=== PATIENT | female | born 1980 | race Caucasian/White ===

== ENCOUNTER 2020-09-14 15:31 | Emergency (ER) | payer OTHER, SELFPAY ==
[2020-09-14 15:43] VITALS: BP 110/77; PULSE 84; RESP 16; TEMP 37.3; O2SAT 99
--- NOTE | 2020-09-14 15:44 | ED.GENADULT ---
HPI - General Adult General Chief complaint: Dizziness Stated complaint: Dizziness Time Seen by Provider: 09/14/20 15:44 Source: patient Mode of arrival: ambulatory Limitations: no limitations History of Present Illness HPI narrative: Patient states that she was at work today at 0700 when she was experiencing feelings of dizziness. 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 Patient states that she has history of seizures and takes Keppra daily but has not had any recent levels. Patient states that she went home and she made sure that she has eaten meals at routine times and was concerned maybe her blood sugar was low. Patient states that she has no ear pain, sinus congestion, sore throat, cough or any feeling of congestion. Patient has BP lying 133/78. sitting 126/76, and standing 107/74 with no symptoms at present admits to not drinking much fluids today.. Patient states that she has kind of been stressed over her daughter being and going through divorce herself, patient admits to being released from skilled nursing in May. complaint: dizziness Onset (ago): hour(s) (9) Radiation: other (no pain) Severity: mild Exacerbating factors: none Associated symptoms: denies other symptoms Treatments prior to arrival: none Related Data Home Medications Medication Instructions Recorded Confirmed Keppra 09/14/20 Allergies Allergy/AdvReac Type Severity Reaction Status Date / Time Penicillins Allergy Unknown SWELLING Verified 03/01/17 20:02 ALL OVER Review of Systems Review of Systems: Narrative: CONSTITUTIONAL: Denies fever, chills, or sweats. EYES: Denies visual changes, redness, or discharge. ENT: Denies rhinorrhea, congestion, sore throat, or otalgia. CARDIOVASCULAR: Denies chest pain, palpitations, or edema. RESPIRATORY: Denies cough or dyspnea. GASTROINTESTINAL: Denies abdominal pain, nausea, vomiting, or diarrhea. GENITOURINARY: Denies dysuria or hematuria. SKIN: Denies rash or itching. MUSCULOSKELETAL: Denies back pain, joint pain, or myalgia. NEUROLOGIC: Denies headache, numbness, or weakness, episode of dizziness this morning at work, no complaints at this time PSYCHIATRIC: Positive history of anxiety or depression. All systems reviewed & are unremarkable except as noted in HPI and below [facility] Past Medical History Medical History (Updated 09/14/20 @ 16:49 by April Guerrero NP) Asthma Bronchitis Seizures UTI (urinary tract infection) Surgical History Surgical History (Updated 09/14/20 @ 16:54 by April Guerrero NP) H/O LEEP History of tubal ligation Hx of cholecystectomy Previous section Social History Social History (Updated 09/14/20 @ 16:14 by April Guerrero NP) Smoking status: Current every day smoker Tobacco type: cigarettes Alcohol intake: former Substance use: former Substance use type: marijuana, crack/cocaine and amphetamines Living arrangements: with family Gender identity (if verbalized by the patient): Female Comments At time of signature, agree with nursing past medical, surgical, social and family history. There is no relevant family history pertinent to the presenting complaint Exam Narrative: Exam Narrative: GENERAL: Well-appearing, well-nourished, and in no acute distress. HEAD: Normocephalic, atraumatic. EYES: PERRLA and EOMI. ENT: Nares clear, no rhinorrhea or epistaxis. Mucous membranes moist. TM's normal with good light reflex. throat pink with no redness or drainage, no tonsil enlargement, NECK: Supple. no lymphadenopathy CHEST: Clear to auscultation. No respiratory distress.SAO2 99% on room air HEART: Regular rate and rhythm. No murmur heard. Normal peripheral pulses. ABDOMEN: Soft, nontender, nondistended, normal active bowel sounds. EXTREMITIES: Normal range of motion. No edema. SKIN: Warm, dry, no rash. NEURO: No focal deficits. Alert
[2020-09-14 15:54] LABS: Glucose Point of Care 99 (65-105)
[2020-09-14 16:15] VITALS: BP 126/76; BP 133/78; PULSE 91; PULSE 94
[2020-09-14 16:16] VITALS: BP 107/74; PULSE 111
== END 2020-09-14 16:26 | disposition home or self-care (01) ==
PROVIDERS: Emergency Provider Registered Nurse
DX: I95.1 Orthostatic hypotension (principal); R42 Dizziness and giddiness; F17.210 Nicotine dependence, cigarettes, uncomplicated; G40.909 Epilepsy, unspecified, not intractable, without status epilepticus; J45.909 Unspecified asthma, uncomplicated
CPT/HCPCS: 82948; 99213; G0463

== ENCOUNTER 2021-03-20 13:40 | Emergency (ER) | payer OTHER, SELFPAY ==
[2021-03-20 14:09] VITALS: BP 120/71; PULSE 85; RESP 16; TEMP 36.2; O2SAT 99
--- NOTE | 2021-03-20 15:41 | PC.NURSE ---
Patient leaving ED at this time, patient states that she can come back tomorrow when there are less patient's.
== END 2021-03-20 15:41 | disposition left against medical advice (07) ==
DX: Z53.21 Procedure and treatment not carried out due to patient leaving prior to being seen by health care provider (principal)
CPT/HCPCS: 99199

== ENCOUNTER 2021-03-20 18:39 | Emergency (ER) | payer OTHER, SELFPAY ==
--- NOTE | ~2021-03-20 | CT_ITS ---
EXAMINATION: CT abd pelvis lumbar wo con DATE: 03/20/2021 21:13 INDICATION: Right flank pain, right lower quadrant pain and sciatica TECHNIQUE: Computed tomography (CT) of the abdomen, pelvis and lumbar spine was performed without int ravenous contrast. Automated exposure control and iterative reconstruction technique were employed. T he dose-length product was 779.77 mGy-cm. COMPARISON: Lumbar spine radiographs dated 03/01/2017 FINDINGS: Abdomen and pelvis: Lung bases are clear. Heart size is normal. No pericardial or pleural effusion. Cholecystectomy clips at the gallbladder fossa. Splenic calcific lesions consistent with old granulomatous disease. Liver, pancreas and bilateral adrenal glands are normal. Kidneys and ureters are normal with no urolithiasi s, hydroureteronephrosis or perinephric/ureteral stranding. There are few scattered colonic diverticu la without adjacent inflammatory change to suggest diverticulitis. Small bowel and appendix are tisha l. Bladder, uterus and bilateral adnexa are unremarkable. Small amount of likely physiologic free flu id in the cul-de-sac. No abscess or free intraperitoneal gas. No pathologically enlarged abdominal or pelvic lymphadenopathy. Lumbar spine: Alignment is normal. Vertebral body and disc heights are normal. Mild disc bulge at L4-L5 resulting i n minimal central canal and mild bilateral neural foraminal stenosis. Mild to moderate bilateral face t osteoarthritis at L3-L4 and L5-S1. Mild facet osteoarthritis the remaining lumbar and lower thoraci c levels. There is indeterminate increased density at the right L3-L4 neural foramen. IMPRESSION: 1. Small amount of likely physiologic free fluid in the cul-de-sac. No acute intra-abdominal/pelvic p rocess. 2. Minimal lumbar spondylosis but with nonspecific increased soft tissue density at the right L3-L4 n eural foramen, unclear whether this results from an enlarged nerve root, a disc protrusion/extrusion or other soft tissue process. Could consider lumbar spine MR for further evaluation. Reviewed, dictated and finalized at location A. IMPRESSION: 1. Small amount of likely physiologic free fluid in the cul-de-sac. No acute in tra-abdominal/pelvic process. 2. Minimal lumbar spondylosis but with nonspecific increased soft tissue densit y at the right L3-L4 neural foramen, unclear whether this results from an enlar ged nerve root, a disc protrusion/extrusion or other soft tissue process. Could consider lumbar spine MR for further evaluation.
[2021-03-20 19:05] VITALS: BP 120/64; PULSE 74; RESP 18; TEMP 37.1; O2SAT 100
[2021-03-20 19:10] VITALS: BP 120/64; PULSE 75; RESP 20; TEMP 37.1; O2SAT 100
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
--- NOTE | 2021-03-20 19:58 | PC.NURSE ---
Pt unable to void, refusing straight catheter at this time. Drink offered, urine cup at bedside.
[2021-03-20] MEDS: diazePAM (*CRX) 5 MG TABLET PO (20:10)
[2021-03-20] MEDS: KETOROLAC 30 MG/ML VIAL (*BKC) IV PUSH (20:11)
[2021-03-20] MEDS: methylPREDNISolone SOD SUCC 125 MG VIAL IV PUSH (20:11)
[2021-03-20 20:16] VITALS: BP 119/83; PULSE 65; RESP 18; O2SAT 100
[2021-03-20 20:24] LABS: Basophils Percent Auto 0.5 % (0.2-1.2); Eosinophils Absolute Auto 0.2 K/mm3 (0-0.3); Eosinophils Percent Auto 2.6 % (0-4.4); Hematocrit 35.6 % (37.0-47.0); Hemoglobin 11.8 g/dL (12.0-15.0); Immature Granulocyte Absolute 0.01 K/mm3 (0.00-0.031); Immature Granulocyte Percent A 0.2 % (0-0.5); Lymphocytes Absolute Auto 1.61 K/mm3 (0.9-3.2); Lymphocytes Percent Auto 27.9 % (18.3-44.2); Mean Corpuscular HGB Conc 33.1 g/dl (32-36); Mean Corpuscular Hemoglobin 28.9 pg (26-34); Mean Platelet Volume 11.5 fl (7.4-10.4); Monocytes Absolute Auto 0.3 K/mm3 (0.1-0.6); Monocytes Percent Auto 5.2 % (2.6-8.5); Neutrophils Absolute Auto 3.7 K/mm3 (1.3-6.7); Neutrophils Percent Auto 63.6 % (45.5-73.1); Platelet Count Result 182 k/mm3 (150-375); Red Blood Count 4.09 M/mm3 (4.2-5.4); Red Cell Distribution Width 13.2 % (11.5-14.5); White Blood Count 5.8 K/mm3 (4.5-10.0)
[2021-03-20 20:29] LABS: Add Urine Microscopic? YES; Appearance Urine Cloudy (Clear); Bacteria Urine Trace /hpf; Bilirubin Urine Negative (Negative); Blood Urine Negative (Negative); Calcium Oxalate Crystals Urine Many /hpf; Color Urine Yellow (Yellow); Glucose Urine UA Negative (Negative); Ketones Urine Negative (Negative); Leukocyte Esterase Ur Trace LEU/UL (Negative); Mucus Urine Few /lpf; Nitrate Urine Negative (Negative); Protein Urine 1+ mg/dL (Negative); Specific Grav Ur 1.028 (1.001-1.035); Squamous Epithelial Cell Urine Many /hpf (Few); WBC Urine 0-3 /hpf
[2021-03-20 20:37] LABS: Alanine Aminotransferase 16 U/L (4-35); Albumin Level 3.4 g/dL (3.5-5.1); Alkaline Phosphatase 57 U/L (38-126); Anion Gap 6 mmol/L (8-16); Aspartate Amino Transferase 20 U/L (14-36); Bilirubin,Total 0.2 mg/dL (0.2-1.3); Blood Urea Nitrogen 10 mg/dL (7-17); Calcium 8.5 mg/dL (8.4-10.2); Carbon Dioxide 24 mmol/L (22-30); Chloride 110 mmol/L (98-107); Estimated CRCL calculation 112 ml/min; Estimated Glomerular Filt Rate > 60; Glucose 93 mg/dL (65-105); Potassium 3.1 mmol/L (3.4-5.0); Sodium 140 mmol/L (137-145)
[2021-03-20] MEDS: POTASSIUM CHLORIDE 20 MEQ TABLET 40 MEQ PO (20:45)
[2021-03-20 21:59] VITALS: BP 132/82; PULSE 75; RESP 16; O2SAT 100
[2021-03-20 23:20] VITALS: BP 121/79; PULSE 72; RESP 18; O2SAT 100
== END 2021-03-20 23:30 | disposition home or self-care (01) ==
PROVIDERS: Emergency Provider General Practice
DX: M47.26 Other spondylosis with radiculopathy, lumbar region (principal); J45.909 Unspecified asthma, uncomplicated; Z87.440 Personal history of urinary (tract) infections; F17.210 Nicotine dependence, cigarettes, uncomplicated
CPT/HCPCS: 36415; 72131; 74176; 80053; 81001; 81025; 85025; 96374; 96375; 99284; A9270; J1885; J2930

== ENCOUNTER 2021-04-23 15:45 | Outpatient (RCR) | payer OTHER, SELFPAY ==
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
--- NOTE | 2021-04-16 16:14 | PCPTNOTE ---
pt did not show for today's appt;
--- NOTE | 2021-04-26 15:30 | PCPTNOTE ---
pt did not show for today's appointment; left message with reminder for next appt;
--- NOTE | 2021-05-01 16:14 | PCPTNOTE ---
Addendum entered by Destiny Parker, PT 05/01/21 16:19: when talking with pt on phone, attempted to reschedule the reeval appt for her; she did not know her work schedule for next week and she will call next week for appt time. Original Note: pt did not show for today's appt, called and she needs to reschedule reeval on 05-03-21;
--- NOTE | 2021-05-17 09:45 | PCPTNOTE ---
pt did not show for today's reevaluation; ; PT discharged.
--- NOTE | 2021-05-17 09:46 | PCPTNOTE ---
PHYSICAL THERAPY DISCHARGE 05-17-21 Attending Provider: MARCY Varner Patient:Roman Spears Date of :1980 Ms. Spears has not returned for any further treatments since 04/23/2021, therefore she will be discharged at this time. Roman has received 3 PT sessions for the diagnosis of lumbar radiculopathy, from April 09 to May 17. She did not show for 4 scheduled appointments, including the reevaluation, which was scheduled for today. The goals were not addressed. Thank you for referring this patient to [facility]. Please review, sign, date and return this discharge summary CHRISTOPH. I have been updated about the patient's current status and I agree with discharge from the above service at this time. Referring Physician Date
== END 2021-05-22 15:30 | disposition home or self-care (01) ==
LOC: ANHPT 15:45
PROVIDERS: PCP Physician Assistant; Visit Provider Physician Assistant
DX: M54.16 Radiculopathy, lumbar region (principal)
CPT/HCPCS: 97014; 97110; 97140; 97161; G0283

== ENCOUNTER 2022-12-07 16:25 | Emergency (ER) | payer OTHER, SELFPAY ==
--- NOTE | ~2022-12-07 | CT_ITS ---
EXAMINATION: CT facial & cervical spine wo DATE: 12/07/2022 17:05 INDICATION: jaw pain, neck pain, injury TECHNIQUE: Computed tomography (CT) of the maxillofacial region and cervical spine was performed with out intravenous contrast. Automated exposure control and iterative reconstruction technique were empl oyed. The dose-length product was 431.71 mGy-cm. COMPARISON: CT brain, same date. CT cervical spine 03/01/2017 FINDINGS: CERVICAL: Vertebral Body Alignment: Intact. Cervical spine straightening which can occur with positioning or mu scle spasm. Craniocervical and atlantoaxial alignment: Mild degenerative change. Alignment intact. Osseous structures/fracture: No evidence of a lytic or blastic process in the visualized spine. No e vidence of acute fracture. Cervical soft tissues: The paraspinal soft tissues planes are maintained. Degenerative changes: Degenerative changes, without severe neural foraminal or central canal narrowin g. FACE: Soft Tissues: No significant superficial soft tissue swelling. Facial bones: No acute fracture. No lytic or blastic process. Eyes: The globes are intact. The soft tissue planes of the orbits are maintained. Paranasal Sinuses: Mucosal thickening and aerated secretions in the ethmoid air cells and right maxi llary sinus. Foreign Bodies: No radiopaque foreign bodies. Other Findings: None. IMPRESSION: No acute fracture or traumatic malalignment in the cervical spine. No acute facial bone fracture. Eth moid and right maxillary sinus findings may represent acute sinusitis or mucosal hemorrhage in the se tting of trauma. Reviewed, dictated and finalized at location K. N TECH IMPRESSION: No acute fracture or traumatic malalignment in the cervical spine. No acute fac ial bone fracture. Ethmoid and right maxillary sinus findings may represent acu te sinusitis or mucosal hemorrhage in the setting of trauma.
--- NOTE | ~2022-12-07 | CT_ITS ---
EXAMINATION: CT brain wo con DATE: 12/07/2022 17:05 INDICATION: head injury . TECHNIQUE: Computed tomography (CT) of the head was performed without intravenous contrast. The mA wa s adjusted according to patient size. Iterative reconstruction technique was employed. The dose-lengt h product was 605.33 mGy-cm. COMPARISON: 03/01/2017. FINDINGS: No acute intracranial hemorrhage or extra-axial fluid collection. No hydrocephalus, mass, or herniation. No acute ischemic infarct. Unremarkable dural venous sinus attenuation. No acute osseous abnormality. Subcutaneous cyst or nodule in the posterior scalp near the vertex. Mucosal thickening and aerated secretions in the ethmoid air cells and right maxillary sinus aerated spaces are clear. IMPRESSION: No acute intracranial process. Ethmoid and right maxillary acute sinusitis versus mucosal hemorrhage. Reviewed, dictated and finalized at location K. EGE RECRUITER IMPRESSION: No acute intracranial process. Ethmoid and right maxillary acute sinusitis vers us mucosal hemorrhage.
[2022-12-07 16:25] VITALS: BP 122/95; PULSE 87; RESP 18; TEMP 36.7; O2SAT 99
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
[2022-12-07] MEDS: ACETAMINOPHEN 500 MG TABLET 1000 MG PO (17:15)
== END 2022-12-07 17:47 | disposition home or self-care (01) ==
PROVIDERS: Emergency Provider Physician Assistant; PCP Physician Assistant
DX: S06.0X1A Concussion with loss of consciousness of 30 minutes or less, initial encounter (principal); J45.909 Unspecified asthma, uncomplicated; Z87.440 Personal history of urinary (tract) infections; F17.210 Nicotine dependence, cigarettes, uncomplicated; Y04.2XXA Assault by strike against or bumped into by another person, initial encounter
CPT/HCPCS: 70450; 70486; 72125; 99284; A9270

== ENCOUNTER 2023-02-19 09:00 | Outpatient (RCR) | payer OTHER, SELFPAY ==
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
--- NOTE | 2023-01-22 11:31 | PCPTNOTE ---
Called Pt after appointment time, Pt apologized for not calling to cancel due to her dealing with a severe UTI. Informed Pt we will cancel this appointment due to the illness. Reminded her of her upcoming appointment on 01/29/23 @09:00.
--- NOTE | 2023-02-19 09:32 | PTOPDC ---
Assessment and note entered by Jaret Lee, PT Evaluation Information Assessment Status Evaluation Diagnosis low back pain Onset Chronic Subjective Information Patient report no change in S/S of her back pain. 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 Patient reports she has multiple styes in her L eye she is trying to get taken care of. Reported Pain Level Pain Score 7: Self Report Assessment PT Clinical Summary Roman is a 42 year old female coming into the clinic with a diagnosis of chronic low back pain. Patient was evaluated on 01/07/23 and attended 5 sessions of physical therapy with no goals met and objective measurements worse than initial evaluations. Patient reports going to see her back doctor tomorrow. At this time I believe that conservative treatments are not working and encourage her to see what the back doctor will suggest. Discharged from skilled physical therapy . Plan of Care PT Services Indicated No
== END 2023-02-19 13:42 | disposition home or self-care (01) ==
LOC: ANHPT 09:00
PROVIDERS: PCP Physician Assistant
DX: M54.50 Low back pain, unspecified (principal)
CPT/HCPCS: 97014; 97110; 97140; 97161; 97530; 99199; G0283

== ENCOUNTER 2023-03-10 22:02 | Emergency (ER) | payer OTHER, SELFPAY ==
[2023-03-10 22:07] VITALS: BP 133/88; PULSE 107; RESP 14; TEMP 36.4; O2SAT 100
--- NOTE | 2023-03-10 22:56 | PC.NURSE ---
Pt states she is supposed to wear glasses and was just prescribed new trifocals but she isn't used to them yet. Pt did not wear her glasses during visual acuity.
--- NOTE | 2023-03-10 22:59 | ED.ANIMALBIT ---
HPI - Animal Bite General Chief Complaint: Animal Bite Stated Complaint: dog bite and needs tetanus shot Time Seen by Provider: 03/10/23 22:28 History of Present Illness HPI narrative: 42-year-old female reports for evaluation of a dog bite to her left lower extremity that occurred yesterday. Patient states she was staying at a client's house while in house arrest, and the client attacked her and then the clients dog bit the patient's leg. She is unsure last tetanus shot was. States she does not believe the dog is up-to-date on his vaccines. She reports contacting [facility] and reporting the incident. States Animal Control told her they will have someone out there to evaluate the dog. Patient also reports blurred vision and pain to her left eye since the attack, states she believes she was poked in the eye. She is reporting blurred vision and feels like there is something in her eye above her upper eyelid. She denies purulent drainage, eye crusting, fever. She does not wear contacts. Related Data Home Medications Medication Instructions Recorded Confirmed Keppra 09/14/20 Zoloft 03/20/21 03/20/21 Allergies Allergy/AdvReac Type Severity Reaction Status Date / Time Penicillins Allergy Unknown SWELLING Verified 03/10/23 22:03 ALL OVER Review of Systems Review of Systems: CONSTITUTIONAL: Denies fever, chills EYES: See HPI ENT: Denies rhinorrhea, congestion, sore throat, or otalgia. CARDIOVASCULAR: Denies chest pain, palpitations, or edema. RESPIRATORY: Denies cough or dyspnea. GASTROINTESTINAL: Denies abdominal pain, nausea, vomiting, or diarrhea. GENITOURINARY: Denies dysuria or hematuria. SKIN: See HPI MUSCULOSKELETAL: Denies back pain, joint pain, or myalgia. NEUROLOGIC: Denies headache, numbness, dizziness, or weakness. PSYCHIATRIC: Denies anxiety or depression. [facility] Past Medical History Medical History Asthma Bronchitis Seizures UTI (urinary tract infection) Surgical History Surgical History H/O LEEP History of tubal ligation Hx of cholecystectomy Previous section Social History Social History (Reviewed 05/30/23 @ 23:03 by CADEN Barakat Smoking status: Current every day smoker Tobacco type: cigarettes Alcohol intake: former Substance use: former Substance use type: marijuana, crack/cocaine and amphetamines Living arrangements: with family Gender identity (if verbalized by the patient): Female Exam Narrative: GENERAL: Well-appearing, in no acute distress. HEAD: Normocephalic EYES: PERRLA, EOMI. Visual acuity 20/30 in L, 20/40 in R. Peripheral vision intact. Tonometry 8 on L, 10 on R. Left eye with erythema to the upper inner medial corner of eyelid, no foreign bodies identified in upper and lower eyelid. No conjunctival erythema. L eye tearful. Fluorescein stain shows an irregular abrasion to the inferior aspect of the L cornea. ENT: Nares clear. Mucous membranes moist. Oropharynx without tonsillar hypertrophy exudate or other lesions. NECK: Supple. CHEST: No respiratory distress. Clear to auscultation, no adventitious breath sounds. HEART: Regular rate and rhythm. No murmur heard. Normal peripheral pulses. ABDOMEN: Soft, nontender, normal active bowel sounds. EXTREMITIES: Normal range of motion. No edema. SKIN: Few small superficial abrasions with overlying scabs to the left lower extremity with mild surrounding erythema, no areas of open skin. No warmth, induration, fluctuation, or purulent drainage. DP pulse 2+. Sensation intact. Pt ambulatory without difficulty. NEURO: No focal deficits. Alert and oriented x3. PSYCH: Normal mood and affect. Course Vital Signs Vital signs: Vital Signs Temperature 97.6 F 03/10/23 22:07 Pulse Rate 107 H 03/10/23 22:07 Respiratory Rate 14 03/10/23 22:07 B
[2023-03-10] MEDS: TETANUS,DIPHTHERIA,AC PERTUSSIS ADULT (0.5 ML) BOOSTRIX IM (23:01)
[2023-03-10] MEDS: FLUORESCEIN SOD 1 MG/STRIP EACH EYE (23:16)
[2023-03-10] MEDS: TETRACAINE HCL 0.5% OPHTH SOLN 4 ML BTL 1 DROP EACH EYE (23:16)
[2023-03-11 00:30] VITALS: BP 142/78; PULSE 82; RESP 18; O2SAT 97
== END 2023-03-11 00:31 | disposition home or self-care (01) ==
PROVIDERS: Emergency Provider Physician Assistant; PCP Physician Assistant
DX: S81.852A Open bite, left lower leg, initial encounter (principal); S05.02XA Injury of conjunctiva and corneal abrasion without foreign body, left eye, initial encounter; Z23 Encounter for immunization; J45.909 Unspecified asthma, uncomplicated; Z87.440 Personal history of urinary (tract) infections; Z90.49 Acquired absence of other specified parts of digestive tract; F17.210 Nicotine dependence, cigarettes, uncomplicated; W54.0XXA Bitten by dog, initial encounter; Y04.2XXA Assault by strike against or bumped into by another person, initial encounter
CPT/HCPCS: 90471; 90715; 99283

== ENCOUNTER 2023-10-21 12:21 | Emergency (ER) | payer OTHER, SELFPAY ==
--- NOTE | 2023-10-21 12:29 | ED.FEMALEGU ---
HPI - Female Genitourinary General Chief complaint: Urogenital-Female Stated complaint: STD Time Seen by Provider: 10/21/23 12:45 Source: patient and RN notes reviewed Mode of arrival: ambulatory Limitations: no limitations History of Present Illness HPI Narrative: 43-year-old female presents concern for abdominal cramping, vaginal odor, of white discharge, painful intercourse, burning with urination for 2 weeks. She reports she found out her partner has been having unprotected sex and saw an e-mail on his phone that he was being treated with metronidazole. MD elicited complaint: UTI Related Data Home Medications Medication Instructions Recorded Confirmed levetiracetam 500 mg tablet 500 mg PO BID 10/21/23 10/21/23 Allergies Allergy/AdvReac Type Severity Reaction Status Date / Time Penicillins Allergy Unknown SWELLING Verified 10/21/23 12:39 ALL OVER Review of Systems Review of Systems: CONSTITUTIONAL: Denies malaise, chills, sweats, or fever. CARDIOVASCULAR: Denies chest pain, palpitations, or edema. RESPIRATORY: Denies cough or dyspnea. GASTROINTESTINAL: Denies abdominal pain, nausea, vomiting, diarrhea. Reports abdominal cramping GENITOURINARY: Reports dysuria, abnormal vaginal discharge, abnormal vaginal odor, despite uremia. Denies frequency, urgency, suprapubic pressure. Denies flank pain or hematuria. SKIN: Denies rash or itching. MUSCULOSKELETAL: Denies back pain or myalgia. All systems reviewed & are unremarkable except as noted in HPI and below PMFSH Past Medical History Medical History Asthma Bronchitis Seizures UTI (urinary tract infection) Surgical History Surgical History H/O LEEP History of tubal ligation Hx of cholecystectomy Previous section Social History Social History Smoking status: Current every day smoker Tobacco type: cigarettes Alcohol intake: former Substance use: former Substance use type: marijuana, crack/cocaine and amphetamines Living arrangements: with family Gender identity (if verbalized by the patient): Female Comments At time of signature, agree with nursing past medical, surgical, social and family history. There is no relevant family history pertinent to the presenting complaint Exam Narrative: GENERAL: Well-appearing, well-nourished, and in no acute distress. HEAD: Normocephalic. EYES: PERRLA, conjunctivae clear. NECK: Supple. No lymphadenopathy CHEST: Clear to auscultation. No respiratory distress. HEART: Regular rate and rhythm. SKIN: Warm, dry, no rash. NEURO: Alert and oriented x3. PSYCH: Normal mood and affect Course Course Emergency Course: Discussed treatment today because patient has symptoms and has likely exposure. Patient had lengthy discussion about how she does not want to be treated until she knows the results because she is unsure if her partner is being treated and she is unwilling to avoid intercourse with him at this time. She reports if she needs treated she is planning to starts the antibiotics while she is on her. Because she will not be having sex at that time. I discussed at length the importance of discussion with her partner regarding mutual treatment or treatment will not be effective. Patient also has anaphylactic reaction to penicillin so Rocephin is not an option if she is positive for gonorrhea. Patient is aware of diagnosis, understands and agrees to treatment plan. Anticipatory guidance given. Patient agrees to follow-up as directed and is aware of reasons to seek care at the emergency department. Portions of this record may have been created with voice recognition software Level of Care: Express Care Visit Vital Signs Vital signs: Reviewed. MDM - Female Genitourinary MDM Narrative Medical decision making
[2023-10-21 12:40] VITALS: BP 138/75; PULSE 94; RESP 16; TEMP 37.1; O2SAT 100
[2023-10-22 14:40] LABS: Trichomonas Vag PCR DETECTED (NOT DETECTE)
[2023-10-22 15:13] LABS: Chlamydia trachomatis NOT DETECTED (NOT DETECTE); Neisseria gonorrhoeae PCR NOT DETECTED (NOT DETECTE)
== END 2023-10-21 13:10 | disposition home or self-care (01) ==
PROVIDERS: Emergency Provider Nurse Practitioner; PCP Physician Assistant
DX: N39.0 Urinary tract infection, site not specified (principal); F17.210 Nicotine dependence, cigarettes, uncomplicated
CPT/HCPCS: 81003; 87077; 87086; 87186; 87491; 87591; 87661; 99214; G0463